=== PATIENT | female | born 1990 ===

== ENCOUNTER 2018-05-27 10:50 | Outpatient (CLI) | payer OTHER | END 2018-05-27 11:15 | disposition home or self-care (01) | LOC: RAD 10:50 | DX: N20.0 Calculus of kidney (principal) ==

== ENCOUNTER → 2020-10-19 | Outpatient (CLI) | payer OTHER | END | disposition home or self-care (01) | LOC: MRI 10:26 | PROVIDERS: ATTEND Orthopaedic Surgery | DX: M54.16 Radiculopathy, lumbar region (principal); M48.061 Spinal stenosis, lumbar region without neurogenic claudication | CPT/HCPCS: 72158 ==